=== PATIENT | male | born 1955 | race Caucasian/White ===

== ENCOUNTER 2021-03-03 13:34 | Emergency (ER) | payer OTHER ==
[~2021-03-03] VITALS: Ht 167.6 cm; Wt 79.4 kg
[2021-03-03] MEDS ORDERED: OXYC5 PO (14:48)
== END 2021-03-03 16:10 | disposition home or self-care (01) ==
LOC: ER 13:34
DX: S09.90XA Unspecified injury of head, initial encounter (principal); S32.019A Unspecified fracture of first lumbar vertebra, initial encounter for closed fracture; V89.2XXA Person injured in unspecified motor-vehicle accident, traffic, initial encounter
CPT/HCPCS: 72100

== ENCOUNTER 2022-10-04 11:28 | Day surgery (SDC) | payer OTHER ==
[~2022-10-04] VITALS: Ht 167.6 cm; Wt 78.3 kg
[~2022-10-04 11:28] MED LIST: OXYC5 PO
[2022-10-04 12:53] VITALS: BP 103/82
--- NOTE | 2022-10-04 13:26 | NUR ---
10/04/22 1326 SCOT CRISOSTOMO UPON RESTING, PT REPORTED IMRPOVEMENT IN ABDOMINAL PAIN AND BELIEVES IT WILL CONTINUE TO IMPROVE. PT AGREEABLE TO GOING HOME.
== END 2022-10-04 13:25 | disposition home or self-care (01) ==
LOC: ORSCSDS 11:28
PROVIDERS: Internal Medicine Gastroenterology
PROC: 0DBL8ZX Excision of Transverse Colon, Via Natural or Artificial Opening Endoscopic, Diagnostic (ICD-10-PCS; principal; 2022-10-04 12:45)
PROC: 0DBM8ZX Excision of Descending Colon, Via Natural or Artificial Opening Endoscopic, Diagnostic (ICD-10-PCS; principal; 2022-10-04 12:45)
DX: Z12.11 Encounter for screening for malignant neoplasm of colon (principal); D12.3 Benign neoplasm of transverse colon; D12.4 Benign neoplasm of descending colon; K57.30 Diverticulosis of large intestine without perforation or abscess without bleeding; K64.8 Other hemorrhoids
CPT/HCPCS: 88305; J2704; J7120